=== PATIENT | male | born 1990 ===

== ENCOUNTER 2020-05-21 14:22 | Inpatient (IN) | payer OTHER ==
[~2020-05-21] VITALS: Ht 180.3 cm; Wt 95.3 kg
[~2020-05-21 14:22] MED LIST: FLUCONAZOLE100 MG PO; TRUVADA 100 MG1 EACH
[2020-05-22] MEDS ORDERED: SYMTUZA 800-151 EACH PO (07:53)
[2020-05-22] MEDS ORDERED: TRIMETHOPRIM100 MG (07:54)
== END 2020-06-02 09:51 | disposition home or self-care (01) | DRG 57 ==
LOC: SEC-K 14:22 → MEDI 14:22
PROVIDERS: ADMIT Internal Medicine Cardiovascular Disease; ATTEND Internal Medicine Cardiovascular Disease
PROC: 8E0ZXY6 Isolation (ICD-10-PCS; principal; 2020-05-21)
PROC: B030Y0Z Magnetic Resonance Imaging (MRI) of Brain using Other Contrast, Unenhanced and Enhanced (ICD-10-PCS; 2020-05-22)
PROC: 02HV33Z Insertion of Infusion Device into Superior Vena Cava, Percutaneous Approach (ICD-10-PCS; 2020-05-22)
PROC: 009U3ZX Drainage of Spinal Canal, Percutaneous Approach, Diagnostic (ICD-10-PCS; 2020-05-23)
DX: A52.19 Other symptomatic neurosyphilis (principal); Z21 Asymptomatic human immunodeficiency virus [HIV] infection status
CPT/HCPCS: 70545